=== PATIENT | male | born 2000 | race Caucasian/White ===

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

== ENCOUNTER 2023-05-11 11:03 | Emergency (ER) | payer OTHER ==
[~2023-05-11] VITALS: Ht 167.6 cm; Wt 117.9 kg
[2023-05-11 11:24] VITALS: BP 125/85; PULSE 81; RESP 16; TEMP 96.8; O2SAT 100
[2023-05-11] MEDS ORDERED: LIDOCAINE MPF 1% 5 ML ONE (11:33)
[2023-05-11] MEDS ORDERED: LIDOCAINE MPF 1% 10 MG/ML VIAL INJ ONE (11:45)
== END 2023-05-11 12:19 | disposition home or self-care (01) ==
LOC: MED 11:03
DX: S21.111A Laceration without foreign body of right front wall of thorax without penetration into thoracic cavity, initial encounter (principal); X58.XXXA Exposure to other specified factors, initial encounter; Y93.89 Activity, other specified; Y92.89 Other specified places as the place of occurrence of the external cause; Y99.8 Other external cause status
CPT/HCPCS: 12001; 99282; J2001

== ENCOUNTER 2023-05-18 09:19 | Emergency (ER) | payer OTHER ==
[~2023-05-18] VITALS: Ht 167.6 cm; Wt 117.9 kg
[2023-05-18 09:28] VITALS: BP 134/78; PULSE 72; RESP 16; TEMP 97.5; O2SAT 98
[2023-05-18] MEDS ORDERED: BACITRACIN OINT 500 UNITS/GM PKT TP ONE (09:55)
[2023-05-18 10:09] VITALS: BP 134/78; PULSE 72; RESP 16; TEMP 97.5; O2SAT 98
== END 2023-05-18 10:10 | disposition home or self-care (01) ==
LOC: MED 09:19
DX: S29.8XXD Other specified injuries of thorax, subsequent encounter (principal); Z48.02 Encounter for removal of sutures; Z48.00 Encounter for change or removal of nonsurgical wound dressing; X58.XXXD Exposure to other specified factors, subsequent encounter
CPT/HCPCS: 99282